=== PATIENT | male | born 1940 | race Caucasian/White ===

== ENCOUNTER 2020-04-12 07:24 | Day surgery (SDC) | payer SELFPAY ==
[~2020-04-12] VITALS: Ht 177.8 cm; Wt 96.0 kg
[~2020-04-12 07:24] MED LIST: HEParin (CATH LAB) 2,000 ML IV ONE; HEParin 1000 UNIT/ML (10ML VIAL) FOR BOLUS ONE; LIDOCAINE 1% INJ 20 ML 20 ML VIAL ONE; MIDAZOLAM 5 MG/5 ML (VERSED) VIAL ONE; NITRO DRIP 25000 MCG/D5W 250 ML IV ONE; NS IV 1000 ML 1,000 ML ONE; fentaNYL INJECTION 100 MCG/2 ML AMP ONE
[2020-04-12] MEDS ORDERED: niCARdipine 25 MG/10 ML (CARDENE) AMP IV ONE (07:50)
[2020-04-12] MEDS ORDERED: NS (IVPB) 250 ML ONE (07:51)
[2020-04-12] MEDS ORDERED: CLOPIDOGREL 300 MG (PLAVIX) TABLET PO ONE (08:28)
--- NOTE | 2020-04-12 08:37 | Cardiology History & Physical ---
HPI-Cardiology Cardiology Consultation Date of Consultation 04/12/20 Date of Admission Time Seen by Provider: 07:30 Indication: acute myocardial infarction HPI 79 years old gentleman with history of tobaccoism, no known past history, started to have chest pain yesterday at 7 p.m., waxing and waning became worse this morning and went to the emergency room where he was noted to have ST elevation myocardial infarction the inferior wall, patient reported diaphoresis and chills some shortness of breath. And active chest pain. No previous history similar to this episode no palpitation, no syncope, does not take any medication. Social History Patient Social History Marrital Status: Employed/Student: retired Smoking: Current every day smoker Family Hx Other Noncontributory ROS-Cardiology Review of Systems General: No Chills, No Night Sweats; Fatigue; No Malaise, No Appetite HEENT: No Head Aches, No Visual Changes, No Eye Pain, No Ear Pain, No Dysphasia, No Sinus Congestion, No Post Nasal Drip, No Sore Throat Pulmonary: Dyspnea; No Cough, No Pleuritic Chest Pain Cardiovascular: Chest Pain; No: Palpitations, Orthopnea, Paroxysmal Noc. Dyspnea, Edema, Lt Headedness Gastrointestinal: No: Nausea, Vomiting, Abdominal Pain, Diarrhea, Constipation, Melena, Hematochezia Genitourinary: No Dysuria, No Frequency, No Incontinence, No Hematuria, No Retention Musculoskeletal: No: neck pain, shoulder pain, arm pain, back pain, hand pain, leg pain, foot pain Neurological: No: Weakness, Numbness, Incoordination, Change in speech, Confusion, Seizures Home Medications & Allergies Home Medication List Reviewed: Yes Doesn't take any medication Exam-Cardiology Exam General Appearance: Alert, Oriented X3, Cooperative, No Acute Distress HEENT: Atraumatic, PERRLA Respiratory: Clear to Auscultation, Normal Air Movement Cardiovascular: Regular Rate, Normal S1, Normal S2, No Murmurs Abdominal: Normal Bowel Sounds, Soft, No Tenderness, No Hepatosplenomegaly, No Masses Extremities: No Clubbing, No Cyanosis, No Edema, Normal Pulses, No Tenderness/Swelling Skin: No Rashes, No Breakdown, No Significant Lesion Neuro: Normal Gait, Normal Speech, Strength at 5/5 X4 Ext, Normal Tone, Sensation Intact Psych/Mental Status: Mental Status NL, Mood NL A/P-Cardiology Admission Diagnosis Acute ST elevation myocardial infarction Coronary artery disease Congestive heart failure, acute left ventricular systolic dysfunction, ischemic cardiomyopathy Hypertension Hyperlipidemia Admission Status: Inpatient Order (span 2 midnights) Reason for Inpatient Admission: Acute ST elevation myocardial infarction Assessment/Plan Acute ST elevation myocardial infarct and inferior wall, patient started waxing and waning yesterday, had severe chest pain this morning, arrived to our c atheter lab from [place] emergency room and emergency cardiac catheterization was carried out, door to balloon time with establishment of flow is 18 minutes Coronary artery disease, cardiac catheterization showed severe multisegment stenosis in the right coronary artery with subtotal occlusion of a thrombus in the distal right coronary artery, complex intervention with deployment of 3 stents in the right coronary artery using distally Darlene 2.5 x 23 mm expanded to 2.7 mm, midportion 2.75 x 18 mm expanded to 3.3 mm and proximally 3 x 15 mm expanded to 3.6 mm with excellent results, patient had moderate to severe stenosis in the mid obtuse marginal branch and moderate to severe stenosis in the mid and distal LAD, patient is loaded on aspirin and Plavix. Will continue maximizing medical therapy Congestive heart failure, acute left ventricular systolic dysfunction, ischemic cardiomyopathy, inferior wall akinesia ejection fraction 40 percent will start on low-dose beta blockers and Dheeraj inhibitors Hypertension, was severely hypertensive on arrival to the emergency room then became hypotensive after single nitroglycerin sublingual. I am starting beta blockers and DHEERAJ inhibitor and will evaluate tolerance and response Hyperlipidemia I will start Lipitor 80 mg and evaluate lipid profile Tobaccoism, smokes over 2 packs a day, educated on smoking cessation CHRIST EARLY MD Apr 12, 2020 08:37
--- NOTE | 2020-04-12 08:41 | Cardiac Procedure Note-CS/ASA ---
Pre-Procedure Note Pre-Op Procedure Note H&P Reviewed The H&P was reviewed, patient examined and no changes noted. Date H&P Reviewed: Apr 12, 2020 Time H&P Reviewed: 07:30 Conscious Sedation Pre-Proced Time 07:30 ASA Score 3 For ASA 3 and 4: Consider anesthesia and medical clearance. Also, for patients with a history of failed moderate sedation consider anesthesia. Airway Lungs Heart ASA score ASA 1: a normal healthy patient ASA 2: a patient with a mild systemic disease (mid diabetes, controlled hypertension, obesity x ASA 3: a patient with a severe systemic disease that limits activity (angina, COPD, prior Myocardial infarction) ASA 4: a patient with an incapacitating disease that is a constant threat to life (CHF, renal failure) ASA 5: a moribund patient not expected to survive 24 hrs. (ruptured aneurysm) ASA 6: a declared brain- patient whose organs are being harvested. For emergent operations, add the letter E after the classification Mallampati Classification Grade 3 Sedation Plan Analgesia, Amnesia, Plan communicated to team members, Discussed options with patient/fam, Discussed risks with patient/fam The patient is an appropriate candidate to undergo the planned procedure, sedation, and anesthesia. The patient immediately re-assessed prior to indication. CHRIST EARLY MD Apr 12, 2020 08:41
[2020-04-12] MEDS ORDERED: PATIENT MAY USE OWN MEDS, ALL PO SCH (08:45)
--- NOTE | 2020-04-12 08:50 | Cardiac Cath Report ---
Cardiac Cath Report Physician (s)/Roll Contour Grinder (s) Physician CHRIST EARLY MD Pre-Procedure Diagnosis Pre-Procedure Diagnosis: acute ST elevation of cardiac infarction Post-Procedure Note Procedure Start Date: Apr 12, 2020 Name of Procedure: Left heart catheterization Left ventriculogram Stenting to the right coronary artery Findings/Procedure Note PROCEDURE NOTE: 79 years old gentleman with no previous cardiac history admitted with acute ST elevation myocardial infarction directly to the catheter lab from [place] emergency room. Catheter lab team were called and we proceeded with emergency cardiac catheterization possible PTCA. After explaining the procedure to the patient, all pros and cons were explained, all questions were answered. The patient signed the consent and then he was placed on the cardiac catheterization laboratory. Groin was prepped SL fashion local anesthesia was used. Sheath placed in the right femoral artery. [place] right and left catheter were used to access the coronary system. Pigtail was used to access the left ventricular cavity. Left ventriculogram was done after the intervention Patient received 5000 units of heparin in [place] emergency room, I gave him additional 3000 heparin during the procedure after evaluating his ACT. FR guide was advanced to the right coronary artery, angiogram was done showing severe diffuse stenosis with subtotal occlusion distally with a thrombus. BMW was advanced with difficulty to the distal right coronary artery then 2.5 x 20 mm balloon was advanced and inflated distally and the door to balloon time/reestablishment of flow was 18 minutes, I retracted the balloon to the proximal lesion of the right coronary artery and did balloon angioplasty with a 2.5 balloon then I attempted to advance a 2.5 x 23 mm Darlene stent and I was unable to pass the proximal lesion due to tortuosity and heavy calcification and disease, I used 3.0 balloon to predilate the proximal lesion then I advanced the stent to the distal position and positioned carefully and deployed at 2.6 mm in the distal right coronary artery, angiogram showed excellent result. There was an ulcerated plaque in the midright coronary artery, I used Darlene 2.75 x 18 mm stent and postdilated with noncompliant balloon to 3.3 mm with excellent results, the proximal lesion was treated with drug-eluting Darlene stent 3.0 x 15 mm postdilated to 3.6 mm proximally and 3.5 mm distally with excellent results. At the end of the procedure the sheath was removed. Closure device was deployed FINDINGS: Hemodynamics LV 127/17, end-diastolic pressure of 17 Aorta 135/67 mean of 96 ANATOMY: Left Main is free of obstructive disease Left Anterior Descending is tortuous artery with moderate to severe stenosis at the midportion and moderate to severe stenosis distally Left Circumflex is moderate in size with moderate disease at the midportion, first obtuse marginal branch had moderate to severe stenosis Right Coronory Artery is calcified with multiple segment of severe stenosis and a thrombus distally with subtotal occlusion successful angioplasty with deployment of 3 drug-eluting stents using Darlene 2.5 x 23 mm distally expanded to 2.6 mm, 2.75 x 18 mm at the midportion expanded to 3.3 mm and 3.0 x 15 mm proximally expanded to 3.6 mm with excellent results LV Gram show dilated left ventricle with inferior wall akinesia, mildly elevated left ventricular end-diastolic pressure, ejection fraction 40 percent CONCLUSION: 1. Acute ST elevation myocardial infarction with emergency cardiac catheterization and stenting with door to balloon/establishment of flow time 18 minutes 2. Severe multisegment stenosis in the right coronary artery with subtotal occlusion with a thrombus distally, clicks intervention with deployment of 3 drug-eluting Darlene stent, distally 2.5 x 23 mm expanded to 2.6 mm, midportion 2.75 x 18 mm expanded to 3.3 mm and proximally 3.0 x 15 mm expanded to 3.6 mm with excellent results 3. Moderate to severe stenosis at the mid and distal LAD that need to be addressed at a later point 4. Moderate to severe stenosis at the mid first obtuse marginal branch and mild to moderate stenosis in the mid proximal circumflex artery that need to be addressed at a later point DISCUSSION AND RECOMMENDATION: I will maximize medical therapy patient was started on aspirin and Plavix, Lopressor and losartan and Lipitor. Educated on smoking cessation Anesthesia Type: Conscious Sedation Estimated blood loss (mL): 35 ml Contrast Amount: 158 ml Total Radiation Dose: 2044 mGy Post-Procedure Diagnosis Post-operative diagnosis: Acute ST elevation myocardial infarction Coronary artery disease Congestive heart failure, acute left ventricular systolic dysfunction, ischemic cardiomyopathy, EF 40 percent Hypertension Hyperlipidemia CHRIST EARLY MD Apr 12, 2020 08:50
[2020-04-12] MEDS: NS IV 1000 ML 1,000 ML IV SCH ×2 (09:00→20:38)
[2020-04-12] MEDS: ASPIRIN E.C. 81 MG (ECOTRIN) TAB PO SCH (15:07)
[2020-04-12] MEDS: CLOPIDOGREL 75 MG (PLAVIX) TABLET PO SCH (15:10)
[2020-04-12] MEDS: meTOprolol TARTRATE 25 MG (LOPRESSOR) TABLET PO SCH ×2 (15:43→18:50)
[2020-04-12] MEDS: LOSARTAN 25 MG (COZAAR) TAB PO SCH (15:43)
[2020-04-13 03:29] LABS: HEMOGLOBIN 14.2 g/dL (13.3-17.7); MEAN PLATELET VOLUME 10.5 fL (9.0-12.2); WHITE BLOOD COUNT 10.9 10^3/uL (4.3-11.0)
[2020-04-13 03:38] LABS: CHLORIDE 108 MMOL/L (98-107); POTASSIUM 3.6 MMOL/L (3.6-5.0); SODIUM 142 MMOL/L (135-145)
[2020-04-13 03:39] LABS: CALCIUM 8.5 MG/DL (8.5-10.1)
[2020-04-13 03:40] LABS: GLUCOSE 93 MG/DL (70-105); TRIGLYCERIDES 145 MG/DL (<150); VLDL CHOLESTEROL 29 MG/DL (5-40)
[2020-04-13 03:41] LABS: CARBON DIOXIDE 22 MMOL/L (21-32)
[2020-04-13 03:44] LABS: CREATININE SERUM 0.92 MG/DL (0.60-1.30); GFR ESTIMATED > 60
[2020-04-13 03:45] LABS: BUN/CREATININE RATIO 17; CHOLESTEROL 156 MG/DL (< 200)
[2020-04-13 03:46] LABS: HDL CHOLESTEROL 30 MG/DL (40-60)
[2020-04-13] MEDS: NS IV 1000 ML 1,000 ML IV SCH (04:20)
[2020-04-13] MEDS: ASPIRIN E.C. 81 MG (ECOTRIN) TAB PO SCH (08:52)
[2020-04-13] MEDS: meTOprolol TARTRATE 25 MG (LOPRESSOR) TABLET PO SCH (08:52)
[2020-04-13] MEDS: CLOPIDOGREL 75 MG (PLAVIX) TABLET PO SCH (08:53)
[2020-04-13] MEDS: LOSARTAN 25 MG (COZAAR) TAB PO SCH (08:53)
--- NOTE | 2020-04-13 09:44 | Diagnostic Imaging Report ---
INDICATION: Chest pain Single AP view of the chest is obtained. There is no previous study for comparison. Heart size and pulmonary vascularity are within normal limits. There is no evidence of pneumothorax or consolidation. Linear density in the right lung base may represent atelectasis or scarring. There is questionable mild mural thickening in the lateral left chest. This could be related to old injury. IMPRESSION: Right basilar atelectasis and/or scarring. Otherwise, no acute abnormality is detected. Dictated by: Dictated on workstation # [id number]
--- NOTE | 2020-04-13 10:04 | Discharge Inst-Post CATH ---
Discharge Inst-CATH/EP Problems Reviewed?: Yes Post Cardiac Cath/EP D/C Inst Follow Up/Plan Appointment with Dr. Navarrete's office in 2 weeks <b>CARDIAC CATH/EP PROCEDURE DISCHARGE INSTRUCTIONS</b> ACTIVITY * Go Home directly and rest. * Limit activity of the leg (or wrist if it was used) for 7 days including aerobics, swimming, jogging, bicycling, etc. * Restrict stair-climbing for 7 days if possible, if not, climb up with your non-cath leg, then bring together on the same step. * Avoid lifting, pushing, pulling or excessive movement of the affected extremity for 7 days. * Customary sexual activity may be resumed after 2 days-use caution not to use a position that strains or causes pain to the affected extremity. * No driving for 24 hours. * NO SMOKING. * Avoid straining for bowel movements for 7 days. * Gentle walking on level ground is allowed. * Returning to work will depend on the type of procedure and the results. Your doctor will discuss this with you. CALL YOUR DOCTOR FOR ANY OF THE FOLLOWING: *If bleeding from the puncture site occurs- Apply gentle pressure to site with clean cloth and call your doctor or EMS. * If a knot or lump forms under the skin, increases in size, or causes pain. * If bruising appears to be worsening or moving further down your leg instead of disappearing. * Temperature above 101 F. CARE OF YOUR GROIN INCISION; * Bruising or purple discoloration of the skin near the puncture site is common. * You may shower only, no bathtub bathing for 5 days. Be careful to avoid slipping as your leg may feel stiff. * If a closure device was used on your femoral artery, please see the attached guide regarding care of the device and your leg. * Leave dressing on FOR 24 hours. CARE OF YOUR WRIST INCISION; * Bruising or purple discoloration of the skin near the puncture site is common. * You may shower. * DO NOT submerge wrist. * Leave dressing on FOR 24 hours. CHRIST NAVARRETE MD Apr 13, 2020 10:04 am
[2020-04-13] MEDS ORDERED: ATOR80TA76 PO (10:06)
[2020-04-13] MEDS ORDERED: METO-333 PO (10:06)
[2020-04-13] MEDS ORDERED: LOSA25TA41 PO (10:06)
[2020-04-13] MEDS ORDERED: ASPI-1238 PO (10:06)
[2020-04-13] MEDS ORDERED: CLOP75TA28 PO (10:06)
--- NOTE | 2020-04-13 10:12 | Cardiology Discharge Summary ---
Discharge Summary Hospital Course Problems Reviewed?: Yes Hospital Course Date of Admission: April 12, 2020 Admission Diagnosis : Acute ST elevation marker infarction Family Physician/Provider: Radha,Local Physician Date of Discharge: 04/13/20 Discharge Diagnosis: [Cute ST elevation myocardial infarction in the inferior wall Congestive heart failure, acute left ventricular systolic dysfunction, ischemic cardiomyopathy with ejection fraction 40 percent Hypertension Hyperlipidemia Tobaccoism ] Hospital Course: [ Patient was seen this morning, has been doing well, educated in length about compliance with medication and taking aspirin and Plavix and stopping smoking cessation, educated on importance of dual antiplatelet therapy and the risk of massive heart attack if he is not compliant patient verbally agreed on taking medication. Acute ST elevation myocardial infarct and inferior wall, patient started waxing and waning yesterday, had severe chest pain this morning, arrived to our catheter lab from [place] emergency room and emergency cardiac catheterization was carried out, door to balloon time with establishment of flow is 18 minutes Coronary artery disease, cardiac catheterization showed severe multisegment stenosis in the right coronary artery with subtotal occlusion of a thrombus in the distal right coronary artery, complex intervention with deployment of 3 sten ts in the right coronary artery using distally Darlene 2.5 x 23 mm expanded to 2.7 mm, midportion 2.75 x 18 mm expanded to 3.3 mm and proximally 3 x 15 mm expanded to 3.6 mm with excellent results, patient had moderate to severe stenosis in the mid obtuse marginal branch and moderate to severe stenosis in the mid and distal LAD which will be treated at a later point in 2-4 weeks, continue on aspirin and Plavix Congestive heart failure, acute left ventricular systolic dysfunction, ischemic cardiomyopathy, inferior wall akinesia ejection fraction 40 percent, started on Lopressor 12.5 mg twice a day and losartan 25 mg daily. Hypertension, blood pressure is better on current medication. Continue to monitor Hyperlipidemia, started on Lipitor 80 mg daily Tobaccoism, smokes over 2 packs a day, educated on smoking cessation ] Labs and Pending Lab Test: Laboratory Tests 04/13/20 02:55: White Blood Count 10.9, Red Blood Count 4.25L, Hemoglobin 14.2, Hematocrit 41, Mean Corpuscular Volume 97, Mean Corpuscular Hemoglobin 33, Mean Corpuscular Hemoglobin Concent 35, Red Cell Distribution Width 13.1, Platelet Count 153, Mean Platelet Volume 10.5, Sodium Level 142, Potassium Level 3.6, Chloride Level 108H, Carbon Dioxide Level 22, Anion Gap 12, Blood Urea Nitrogen 16, Creatinine 0.92, Estimat Glomerular Filtration Rate > 60, BUN/Creatinine Ratio 17, Glucose Level 93, Calcium Level 8.5, Troponin I 3.631*H, B-Type Natriuretic Peptide 221.4H, Triglycerides Level 145, Cholesterol Level 156, LDL Cholesterol Direct 112, VLDL Cholesterol 29, HDL Cholesterol 30L Home Meds Active Aspirin EC (Aspirin) 81 Mg Tablet.dr 81 Mg PO DAILY Losartan Potassium 25 Mg Tablet 25 Mg PO DAILY Metoprolol Tartrate 25 Mg Tablet 12.5 Mg PO BID Atorvastatin Calcium 80 Mg Tablet 80 Mg PO HS Clopidogrel (Clopidogrel Bisulfate) 75 Mg Tablet 75 Mg PO DAILY Assessment/Pt DC Instructions Coronary artery disease, compliance with medication and heart failure management Orders-Post D/C & Referrals Pneu Vac Indicated: Yes Discharge Physical Examination Allergies: Coded Allergies: No Known Drug Allergies (Unverified , 04/12/20) General Appearance: No Apparent Distress, WD/WN HEENT: PERRL/EOMI, TMs Normal, Normal ENT Inspection, Pharynx Normal Respiratory: Chest Non Tender, Lungs Clear, Normal Breath Sounds, No Accessory Muscle Use, No Respiratory Distress Cardiovascular: Regular Rate, Rhythm, No Edema, No Gallop, No JVD, No Murmur, Normal Peripheral Pulses Gastrointestinal: Normal Bowel Sounds, No Organomegaly, No Pulsatile Mass, Non Tender, Soft Extremity: Normal Capillary Refill, Normal Inspection, Normal Range of Motion, Non Tender, No Calf Tenderness Skin: Normal Color, Warm/Dry Neurologic/Psychiatric: Alert, Oriented x3, No Motor/Sensory Deficits, Normal Mood/Affect, marketing communications manager II-XII Norm as Tested Clinical Quality Measures End of Life/Advance Care Plan: Advance Care discuss with: patient Admission Status Admission Status: Inpatient Order (span 2 midnights) Reason for Inpatient Admission: Acute ST elevation myocardial infarction AMI/AHF: Ejection Fraction: Above/Equal to 40 D/C Medications Addressed: Dheeraj inhibitors, Beta landy D/C Inst. for HF given: Yes DVT/VTE Risk/Contraindication: Risk Factor Score Per Nursin RFS Level Per Nursing on Admit: 4+=Very High CHRIST EARLY MD Apr 13, 2020 10:12 am
--- NOTE | 2020-04-13 10:43 | NUR ---
SPOKE WITH PATIENTS DAUGHTER, LEVI, REGARDING DISCHARGE INSTRUCTIONS AND ADVISED TO ASSIST WITH MEDICATION COMPLIANCE WHEN PATIENT GETS HOME. LEVI STATED THAT "HE IS A GROWN MAN" AND SHE IS CONCERNED WITH MEDICATION COMPLIANCE. SHE DID STATE THAT SHE WOULD DO HER BEST TO ASSIST WITH NEW MEDICATIONS.
--- NOTE | 2020-04-13 11:21 | NUR ---
SPOKE WITH PATIENTS , DONALD AND DISCHARGE INSTRUCTIONS GIVEN TO HER WELL. NO FURTHER QUESTIONS FROM DONALD AT THIS TIME. COMING TO GET PATIENT FROM [facility] AT THIS TIME.
[2020-04-13 11:29] VITALS: BP 98/68
--- NOTE | 2020-04-13 11:41 | NUR ---
PT AMUBLATED AROUND THE ICU X 1 WITHOUT COMPLICATIONS OR DIFFICULTIES. ALL DISCHARGE INSTRUCTIONS GIVEN TO PATIENT AND HE VOICED UNDERSTANDING. HEAVILY WENT OVER MEDICATIONS AND MEDICATION COMPLIANCE. HE VOICED UNDERSTANDING. AWAITING WIFES ARRIVAL FOR D/C.
--- NOTE | 2020-04-13 12:13 | NUR ---
PT DISCHARGED HOME VIA PV WITHOUT COMPLICATIONS. ALL PERSONAL BELONGINGS WITH PATIENT.
== END 2020-04-13 12:14 | disposition home or self-care (01) ==
LOC: CATH 07:24 → ICU 09:00 → CATH 04-13 12:14
PROVIDERS: ATTEND Internal Medicine Cardiovascular Disease
DX: I21.3 ST elevation (STEMI) myocardial infarction of unspecified site (principal); I11.0 Hypertensive heart disease with heart failure; I50.21 Acute systolic (congestive) heart failure; I25.10 Atherosclerotic heart disease of native coronary artery without angina pectoris; E78.5 Hyperlipidemia, unspecified; F17.210 Nicotine dependence, cigarettes, uncomplicated; Z79.899 Other long term (current) drug therapy
CPT/HCPCS: 71045; 80048; 80061; 83880; 84484; 85027; 93458; C1725 ×3; C1760; C1769; C1874 ×4; C1887; C1894; C9606; 36415

== ENCOUNTER → 2021-02-04 | Outpatient (CLI) | payer SELFPAY ==
[~2021-02-04] MED LIST changes: +ASPI-1238 PO; +ATOR80TA76 PO; +CATHETER FLUSH 10 ML SYR IV PRN; +CLOP75TA28 PO; -HEParin (CATH LAB) 2,000 ML IV ONE; -HEParin 1000 UNIT/ML (10ML VIAL) FOR BOLUS ONE; -LIDOCAINE 1% INJ 20 ML 20 ML VIAL ONE; +LOSA25TA41 PO; +METO-333 PO; -MIDAZOLAM 5 MG/5 ML (VERSED) VIAL ONE; -NITRO DRIP 25000 MCG/D5W 250 ML IV ONE; -NS IV 1000 ML 1,000 ML ONE; -fentaNYL INJECTION 100 MCG/2 ML AMP ONE
[2021-02-04 13:15] VITALS: BP 141/83
--- NOTE | 2021-02-05 08:00 | Cardiology Stress Test Report ---
Stress Test Report Date of Procedure/Referring: Date of Procedure: Feb 04, 2021 Carissa Naik Admitting Physician No,Local Physician Indications: CAD Baseline Heart Rate: 71 Baseline Blood Pressure: Blood Pressure Systolic: 141 Blood Pressure Diastolic: 83 Vital Signs Date Time Temp Pulse Resp B/P (MAP) Pulse Ox O2 Delivery O2 Flow Rate FiO2 02/04/21 13:15 71 141/83 (102) 99 Baseline Vital Signs Vital Signs Date Time Temp Pulse Resp B/P (MAP) Pulse Ox O2 Delivery O2 Flow Rate FiO2 02/04/21 13:15 71 141/83 (102) 99 Baseline EKG: Baseline EKG: NSR Summary: After explaining the procedure and details to the patient, he signed the consent and was brought to the stress nuclear laboratory. Patient exercised on standard Andrew protocol, EKG, heart rate and blood pressure were monitored continuously, resting and stress doses of radio tracer were injected, imaging was acquired and reviewed in the short axis, horizontal long axis and vertical long axis views Patient was able to exercise for a total of 2.30 minutes on Andrew protocol, METs 4 Maximum heart rate 144 Maximum blood pressure 159/92 Stress EKG, Minimal nondiagnostic changes Recovery EKG, Return to baseline TID: 0.96 SSS: 15 SDS: 1 EF: 78 Conclusion: 1. Poor exercise tolerance for 2 minutes 30 seconds on standard Andrew protocol, 4 METS achieving 100% of maximal expected heart rate 2. Appropriate heart rate and blood pressure response to exercise return to baseline during recovery 3. Nondiagnostic EKG changes with exercise return to baseline during recovery 4. Diaphragmatic attenuation and motion artifacts affected the quality of the images, there is a fixed defect involving the whole inferior wall, inferolateral wall and inferoseptum with no significant reversibility, probably secondary to the extracardiac attenuation 5. Normal left ventricular size with normal contractility, inferior wall is soraida normally, ejection fraction 78% CHRIST EARLY MD Feb 05, 2021 08:00
== END ==
LOC: CARD 12:00
PROVIDERS: ATTEND Physician Assistant
DX: I25.10 Atherosclerotic heart disease of native coronary artery without angina pectoris (principal)
CPT/HCPCS: 78452; 93017; A9502